=== PATIENT | male | born 1960 | race Caucasian/White ===

== ENCOUNTER 2018-11-01 15:01 | Emergency (ER) | payer MEDICARE, OTHER ==
[~2018-11-01] VITALS: Ht 185.4 cm; Wt 90.5 kg
[~2018-11-01 15:01] MED LIST: ASPI-1192 PO; ASPI-556 PO; HYDR25TA PO; LISI-661 PO
[2018-11-01] MEDS ORDERED: METHOCARBAMOL 500 MG TABLET PO ONE (16:45)
[2018-11-01] MEDS ORDERED: KETOROLAC TROMETHAMINE 10 MG TABLET PO ONE (16:45)
[2018-11-01 17:18] LABS: APPEARANCE,URINE CLOUDY (CLEAR); BILIRUBIN,URINE NEGATIVE (NEGATIVE); GLUCOSE, URINE (UA) NEGATIVE (NEGATIVE); KETONES,URINE NEGATIVE (NEGATIVE); LEUKOCYTE ESTERASE ,URINE LARGE (NEGATIVE); NITRATE,URINE NEGATIVE (NEGATIVE); OCCULT BLOOD,URINE MODERATE (NEGATIVE); PH,URINE 6.5 (5.0-8.0); PROTEIN,URINE TRACE (NEGATIVE); UROBILINOGEN,URINE 0.2 mg/dL (<=1.0)
[2018-11-01 17:55] VITALS: BP 149/89
[2018-11-01 17:59] LABS: BACTERIA,URINE Few /HPF (None Seen); SQUAMOUS EPITHELIAL CELL,UR Rare /LPF (None Seen)
== END 2018-11-01 19:05 | disposition home or self-care (01) ==
LOC: EMS 15:02
DX: N41.9 Inflammatory disease of prostate, unspecified (principal); M54.41 Lumbago with sciatica, right side; I10 Essential (primary) hypertension; Z79.82 Long term (current) use of aspirin; Z79.899 Other long term (current) drug therapy
CPT/HCPCS: 84153; 87086

== ENCOUNTER 2019-05-07 14:31 | Emergency (ER) | payer MEDICARE, OTHER ==
[~2019-05-07] VITALS: Ht 182.9 cm; Wt 104.5 kg
[2019-05-07 18:23] VITALS: BP 152/94
== END 2019-05-07 18:27 | disposition home or self-care (01) ==
LOC: EMS 14:32
DX: M54.5 Low back pain (principal); I10 Essential (primary) hypertension; G89.29 Other chronic pain; R10.31 Right lower quadrant pain; Z79.82 Long term (current) use of aspirin; Z79.899 Other long term (current) drug therapy